=== PATIENT | female | born 1970 | race Caucasian/White ===

== ENCOUNTER 2021-04-19 10:51 | Emergency (ER) | payer MEDICAID ==
[~2021-04-19] VITALS: Ht 157.5 cm; Wt 70.0 kg
[~2021-04-19 10:51] MED LIST: ALBUTEROL; OMEGA 3
[2021-04-19 11:01] VITALS: BP 116/69
[2021-04-19] MEDS ORDERED: DIPHENHYDRAMINE 25MG CAPSULE PO ONE (12:15)
[2021-04-19] MEDS ORDERED: PREDNISONE 20MG TABLET PO ONE (12:15)
[2021-04-19] MEDS ORDERED: FAMOTIDINE 20MG TABLET PO ONE ×2 (12:15→12:45)
[2021-04-19] MEDS ORDERED: DIPHENHYDRAMINE 50MG CAPSULE PO ONE (12:45)
[2021-04-19] MEDS ORDERED: CETI10TA6 MT (13:07)
[2021-04-19] MEDS ORDERED: DIPH28.34 TP (13:07)
== END 2021-04-19 13:28 | disposition home or self-care (01) ==
LOC: ER 10:51
DX: R21 Rash and other nonspecific skin eruption (principal); L25.9 Unspecified contact dermatitis, unspecified cause; J45.909 Unspecified asthma, uncomplicated; Z88.5 Allergy status to narcotic agent; Z88.6 Allergy status to analgesic agent; Z90.49 Acquired absence of other specified parts of digestive tract; Z98.890 Other specified postprocedural states
CPT/HCPCS: 99284; J7512; Q0163